=== PATIENT | female | born 1970 | race Caucasian/White ===

== ENCOUNTER 2023-01-27 12:29 | Outpatient (CLI) | payer OTHER, MEDICAID | END 2023-01-27 12:30 | disposition home or self-care (01) | LOC: BICMRI 12:29 | PROVIDERS: ATTEND Internal Medicine Gastroenterology | DX: K21.9 Gastro-esophageal reflux disease without esophagitis (principal); K50.80 Crohn's disease of both small and large intestine without complications; K74.60 Unspecified cirrhosis of liver; I86.4 Gastric varices; K68.2 Retroperitoneal fibrosis; R63.4 Abnormal weight loss; R16.1 Splenomegaly, not elsewhere classified | CPT/HCPCS: 74183; 82565 ==